=== PATIENT | male | born 1980 | race Hispanic/Latino ===

== ENCOUNTER 2017-06-06 17:42 | Emergency (ER) | payer OTHER ==
[~2017-06-06] VITALS: Ht 182.9 cm; Wt 96.4 kg
[~2017-06-06 17:42] MED LIST: AUGMENTIN875TAB PO; AZITHROMYCIN500 MG PO; FLEXERIL PO; HYDROCORTISO2.51 EX; KETOCONAZOLE2 % EX; LORTAB 5-325 MG1 TAB PO; MUCINEX600 MG PO; NAPROSYN500 MG PO
[2017-06-06 18:30] VITALS: BP 134/82
[2017-06-06] MEDS ORDERED: ULTRAM50 M1 PO (18:30)
== END 2017-06-06 18:40 | disposition still patient (30) | DRG 563 ==
LOC: ED 17:42
DX: S93.401A Sprain of unspecified ligament of right ankle, initial encounter (principal); M25.471 Effusion, right ankle; M25.571 Pain in right ankle and joints of right foot; X50.1XXA Overexertion from prolonged static or awkward postures, initial encounter; Y93.66 Activity, soccer; Y92.830 Public park as the place of occurrence of the external cause